=== PATIENT | male | born 1955 | race Caucasian/White ===

== ENCOUNTER 2017-07-24 07:24 | Emergency (ER) | payer OTHER ==
[~2017-07-24] VITALS: Ht 182.9 cm; Wt 134.0 kg
[2017-07-24 07:26] VITALS: Ht 182.9 cm; Wt 134.0 kg
[2017-07-24] MEDS ORDERED: DIPHENHYDRAMINE 50 MG INJ IM STA (07:38)
[2017-07-24] MEDS ORDERED: KETO120S2 TOP (07:54)
[2017-07-24] MEDS ORDERED: DIPH25CA6 PO (07:54)
[2017-07-24] MEDS ORDERED: PRED50TA PO (07:54)
[2017-07-24] MEDS ORDERED: METHYLPREDNISOLONE 125 MG INJ IM ONE (08:00)
--- NOTE | 2017-07-24 08:12 | ERD ---
ER Documentation Chief Complaint Date/Time DATE: 07/24/17 TIME: 08:09 Chief Complaint Complains of a rash / allergic reaction since last night HPI This is a 61-year-old male presenting to the emergency department complaining of a generalized rash throughout his body since last night. Patient denies any tenderness associated with it however he does admit to having a lot of itchiness. Patient denies fevers, shortness of breath, respiratory distress. Patient denies taking any medications for this. He is unsure when can be allergic to, he denies new creams or recent traveling ROS All systems reviewed and are negative except as per history of present illness. Medications Home Meds Active Scripts Prednisone* (Prednisone*) 50 Mg Tablet, 50 MG PO DAILY for 4 Days, TAB Prov:MOY SMITH PA-C 07/24/17 Diphenhydramine Hcl* (Diphenhydramine Hcl*) 25 Mg Capsule, 25 MG PO Q6 Y for ITCHING, #30 CAP Prov:MOY SMITH PA-C 07/24/17 Ketoconazole* (Ketoconazole*) 2% - 120 Ml Shampoo, 1 APPLIC TOP BID, #1 EA WASH HAIR/SCALP AND RINSE OFF Prov:MOY SMITH PA-C 07/24/17 Allergies Allergies: Coded Allergies: No Known Allergy (Unverified , 07/24/17) PMhx/Soc Medical and Surgical Hx: pt denies Medical Hx History of Surgery: Yes (appy) Hx Alcohol Use: No Hx Substance Use: No Hx Tobacco Use: No Physical Exam Vitals Vital Signs Date Time Temp Pulse Resp B/P Pulse Ox O2 Delivery O2 Flow Rate FiO2 07/24/17 07:26 97.3 83 20 140/95 95 Physical Exam General: WD/WN, in no apparent distress, non-toxic appearing HENT: NC/AT Eyes: Conjunctiva normal Neck: Supple Pulm: Clear to auscultation, normal labored breathing; no wheezing/rales/ rhonchi heard CV: Good capillary refill GI: Non-distended, no guarding Back: No masses Ext: No clubbing, cyanosis, or edema Neuro: Moves on all fours Skin: Tenderness papules throughout body, patient had erythematous scaliness throughout the scalp Psych: Normal mood Results 24 hrs Current Medications Medications (Trade) Dose Ordered Sig/Tatianna Route PRN Reason Start Time Stop Time Status Last Admin Dose Admin Methylprednisolone Sodium Succinate (Solu-Medrol) 125 mg ONCE ONCE IM 07/24/17 08:00 07/24/17 08:01 DC 07/24/17 07:48 Diphenhydramine HCl (Benadryl) 50 mg ONCE STAT IM 07/24/17 07:38 07/24/17 07:39 DC 07/24/17 07:47 Procedures/MDM This is a 61-year-old female presenting to the emergency department with dermatitis most consistent with an allergic reaction. There was no evidence of anaphylaxis no evidence of respiratory distress. Airways are intact. Patient was given prescription for prednisone and Benadryl for home, I have discussed with him to follow-up with his primary care physician. At this position also patient states that he has dandruff and has been trying sulfur shampoo without much relief. I have given him a prescription for ketoconazole solution shampoo and to follow-up with PCP Departure Diagnosis: Primary Impression: Allergic reaction Condition: Stable Patient Instructions: First Aid: Allergic Reactions Ref[facility]: [facility] Usted se jeter hecho un examen mdico de control que le indica que no est en herve condicin que requiera tratamiento urgente en el Departamento de Emergencia. Un estudio ms profundo y el tratamiento de davalos condicin pueden esperar sin ningn riesgo hasta que usted sea atendida/o en el consultorio de davalos mdico o herve cl eric. Es responsabilidad suya arreglar herve jose a para el seguimiento del jeffrey. MANEJO DE CONDICIONES NO URGENTES EN EL FUTURO 1) Si usted tiene un mdico de atencin primaria: Usted debera llamar a davalos mdico de atencin primaria antes de venir al departamento de emergencia. Despus de las horas de consultorio, davalos doctor o davalos asociado/a est disponible por telfono. El mdico o enfermero de liberty en el servicio telefnico puede asesorarle por kali medio para atender el problema, o jeffrey contrario se puede programar herve jose a. 2) Si usted no tiene un mdico de atencin primaria: Llame al mdico o clnica de referencia que aparece abajo ivan las horas de consultorio para hacer herve jose a para que le vean. CLINICAS: [facility] [phone] [facility] [phone] [facility] [phone] [place] [address] [phone] [place] [address] [phone] [facility] [phone] [address] Additional Instructions: Visite a davalos mdico maana para un EXAMEN.Regrese a estas instalaciones si no se mejora kristin esperbamos o kristin le dijimos. [place] toda la medicina luis enrique y kristin se le indic. Regrese a estas instalaciones si no se mejora kristin esperbamos o kristin le dijimos. La medicina que se le recet puede causarle sueo.NO DEBE MANEJAR NI OPERAR MAQUINARIAS PELIGROSAS mientras esta tomando esta medicina! MOY SMITH PA-C Jul 24, 2017 08:12
== END 2017-07-24 08:25 | disposition home or self-care (01) ==
LOC: FTE 07:24
DX: L30.9 Dermatitis, unspecified (principal)
CPT/HCPCS: 96372; J1200; J2930; Z7502

== ENCOUNTER 2017-08-28 03:17 | Emergency (ER) | payer OTHER ==
[~2017-08-28] VITALS: Ht 185.4 cm; Wt 147.0 kg
[~2017-08-28 03:17] MED LIST: DIPH25CA6 PO; KETO120S2 TOP; PRED50TA PO
[2017-08-28 03:19] VITALS: Ht 185.4 cm; Wt 147.0 kg
--- NOTE | 2017-08-28 04:15 | ERD ---
ER Documentation Chief Complaint Chief Complaint c/o right leg redness x 3 days. HPI 62-year-old male presents here in emergency department for complaints of redness and swelling of the right lower leg, noted some inflamed vein in the right lower leg that runs to the right thigh to the right lower leg. Patient describes the pain as sharp pain, 6/10 scale, as was upon touching the area. Patient has history of venous insufficiency. Patient denies any fever or chills ROS All systems reviewed and are negative except as per history of present illness. Medications Home Meds Active Scripts Prednisone* (Prednisone*) 50 Mg Tablet, 50 MG PO DAILY for 4 Days, TAB Prov:MOY SMITH PA-C 07/24/17 Diphenhydramine Hcl* (Diphenhydramine Hcl*) 25 Mg Capsule, 25 MG PO Q6 Y for ITCHING, #30 CAP Prov:MOY SMITH PA-C 07/24/17 Ketoconazole* (Ketoconazole*) 2% - 120 Ml Shampoo, 1 APPLIC TOP BID, #1 EA WASH HAIR/SCALP AND RINSE OFF Prov:MOY SMITH PA-C 07/24/17 Allergies Allergies: Coded Allergies: No Known Allergy (Unverified , 07/24/17) PMhx/Soc History of Surgery: Yes (appy) Anesthesia Reaction: No Hx Neurological Disorder: No Hx Respiratory Disorders: No Hx Cardiac Disorders: No Hx Psychiatric Problems: No Hx Miscellaneous Medical Probl: Yes (ARTHRITIS ) Hx Alcohol Use: No Hx Substance Use: No Hx Tobacco Use: No Smoking Status: Current every day smoker FmHx Family History: No coronary disease, No diabetes, No other Physical Exam Vitals Vital Signs Date Time Temp Pulse Resp B/P Pulse Ox O2 Delivery O2 Flow Rate FiO2 08/28/17 03:19 97.0 87 18 164/93 96 Physical Exam GENERAL: The patient is well developed and appropriate for usual state of health, in no apparent distress. CHEST: Clear to auscultation bilaterally. There are no rales, wheezes or rhonchi. HEART: Regular rate and rhythm. No murmurs, clicks, rubs or gallops. No S3 or S4. ABDOMEN: Soft, nontender and nondistended. Good bowel sounds. No rebound or guarding. No gross peritonitis. No gross organomegaly or masses. No Paz sign or McBurney point tenderness. BACK: No midline or flank tenderness. EXTREMITIES: Palpable erythematous vein noted in the right lower leg. Equal pulses bilaterally. There is no peripheral clubbing, cyanosis or edema. No focal swelling or erythema. Full range of motion. Grossly neurovascularly intact. NEURO: Alert and oriented. Cranial nerves 2-12 intact. Motor strength in all 4 extremities with 5/5 strength. Sensation grossly intact. Normal speech and gait. SKIN: There is no apparent rash or petechia. The skin is warm and dry. HEMATOLOGIC AND LYMPHATIC: There is no evidence of excessive bruising or lymphedema. No gross cervical, axillary, or inguinal lymphadenopathy. Results 24 hrs PROCEDURE: US right lower extremity venous Doppler CLINICAL INDICATION: Right leg swelling TECHNIQUE: Multiple sonographic images of the right lower extremity deep venous system was obtained utilizing grayscale, color-flow, compressive sonography and Doppler imaging with augmentation. COMPARISON: No pertinent prior examinations were submitted for comparison. FINDINGS: There is normal compressibility and flow within the right common femoral, superficial femoral, popliteal, and peroneal veins. IMPRESSION: No sonographic evidence for deep venous thrombosis. RPTAT: HIKT .Rai Williamson MD, MD Date Time Electronically viewed and signed by .Rai Williamson MD, MD on 08/28/2017 04:56 .T/ CC: RENAY OSMAN TOY CONSULTANT Procedures/MDM Medical Decision making: Patient symptoms was likely is consistent with phlebitis, low suspicion for any supperative thrombophlebitis or acute bacterial section. Low suspicion for DVT. Ultrasound does not show any DVT. Patient has history of venous insufficiency consistent with this. Prescription was given for ibuprofen for [id number] pain, [place] for severe pain, is advised to follow-up with primary care doctor and vascular specialist for further evaluation and management. Patient was advised to return to emergency department for any worsening symptoms. Disposition: Home. Stable. Departure Diagnosis: Primary Impression: Phlebitis Condition: Stable Patient Instructions: Varicose Veins RENAY OSMAN NP Aug 28, 2017 04:15
--- NOTE | 2017-08-28 04:56 | RADRPT ---
PROCEDURE: US right lower extremity venous Doppler CLINICAL INDICATION: Right leg swelling TECHNIQUE: Multiple sonographic images of the right lower extremity deep venous system was obtaine d utilizing grayscale, color-flow, compressive sonography and Doppler imaging with augmentation. COMPARISON: No pertinent prior examinations were submitted for comparison. FINDINGS: There is normal compressibility and flow within the right common femoral, superficial femoral, popli teal, and peroneal veins. IMPRESSION: No sonographic evidence for deep venous thrombosis. RPTAT: HIKT .Rai Williamson MD, MD Date Time Electronically viewed and signed by .Rai Williamson MD, MD on 08/28/2017 04:56 .T/
[2017-08-28] MEDS ORDERED: IBUP-1542 PO (05:15)
[2017-08-28] MEDS ORDERED: HYDR-906 PO (05:15)
[2017-08-28 05:22] VITALS: BP 147/85; PULSE 76; RESP 18
== END 2017-08-28 05:22 | disposition home or self-care (01) ==
LOC: FTE 03:17
DX: I80.3 Phlebitis and thrombophlebitis of lower extremities, unspecified (principal); F17.210 Nicotine dependence, cigarettes, uncomplicated
CPT/HCPCS: 93971; Z7502

== ENCOUNTER 2017-10-29 07:03 | Emergency (ER) | END 2017-10-29 08:14 | disposition home or self-care (01) ==

== ENCOUNTER 2018-03-08 11:44 | Emergency (ER) | END 2018-03-08 13:49 | disposition home or self-care (01) ==

== ENCOUNTER 2018-05-10 06:30 | Emergency (ER) | END 2018-05-10 09:50 | disposition home or self-care (01) ==

== ENCOUNTER 2018-07-11 09:55 | Emergency (ER) | END 2018-07-11 12:26 | disposition home or self-care (01) ==